=== PATIENT | male | born 1960 | race Caucasian/White ===

== ENCOUNTER 2016-07-16 15:10 | Inpatient (IN) | payer OTHER ==
[~2016-07-16] VITALS: Ht 170.2 cm; Wt 97.7 kg
[~2016-07-16 15:10] MED LIST: DIOVAN; LIPITOR
[2016-07-16 16:19] LABS: EOSINOPHIL (%) 1.9 % (0-5); EOSINOPHIL COUNT 0.1 K/uL (0-0.3); HEMATOCRIT 23.8 % (38.0-50.0); IMMATURE GRANULOCYTE (%) 0.4 % (0.0-0.7); INSTRUMENT ABS NEUTROPHIL CT 5.2 K/uL; LYMPHOCYTE COUNT 1.2 K/uL (1.0-2.8); MCH 28.6 PG (29.0-34.0); MCHC 33.2 G/DL (30.0-36.0); MCV 86.2 FL (86-99); MONOCYTE (%) 11.9 % (3-12); MONOCYTE COUNT 0.9 K/uL (0-0.8); NEUTROPHIL (%) 69.1 % (45-76); NEUTROPHIL COUNT 5.2 K/uL (1.8-6.4); NRBC (%) 0.3 /100 WBC (0-0); PLATELET COUNT 285 K/uL (156-360); RBC DIS.WIDTH-CV 12.5 % (11.8-14.6); RBC DIS.WIDTH-SD 39.3 % (39-53); WHITE BLOOD COUNT 7.5 K/uL (4.1-10.2)
[2016-07-16 16:20] LABS: RED BLOOD COUNT 2.76 M/uL (4.00-5.50)
[2016-07-16 16:30] LABS: CHLORIDE 98 mEq/L (99-109); SODIUM 137 mEq/L (136-147)
[2016-07-16 16:32] LABS: GLUCOSE 118 mg/dL (70-99)
[2016-07-16 16:33] LABS: ANION GAP 13 MEQ/L (2-14)
[2016-07-16 16:35] LABS: GFR ESTIMATE (CALCULATED) > 59 mL/min/
[2016-07-16 16:36] LABS: UREA NITROGEN (BUN) 17 mg/dL (9-23)
[2016-07-16 16:46] LABS: C-REACTIVE PROTEIN 159.1 MG/L (0-10); SAMPLE HEMOLYSIS CHECK 0; SAMPLE ICTERIC CHECK 0; SAMPLE LIPEMIA CHECK 0
[2016-07-16 16:49] LABS: ERTH.SED.RATE 52 MM/HR (0-20)
[2016-07-16 19:00] VITALS: BP 150/72
[2016-07-16] MEDS ORDERED: XARELTO20 MG PO (19:33)
[2016-07-16] MEDS ORDERED: ROXICODONE5 MG PO (19:33)
[2016-07-16] MEDS ORDERED: LOSARTAN-HCTZ1 EAC2 PO (19:33)
[2016-07-16] MEDS ORDERED: LIPITOR20 MG PO (19:34)
[2016-07-16] MEDS ORDERED: LO-DOSE ASPIRIN81 M1 PO (19:34)
[2016-07-16] MEDS ORDERED: NORVASC5 MG PO (19:34)
[2016-07-16] MEDS ORDERED: TYLENOL EXTRA500 MG PO (19:35)
[2016-07-16 20:00] VITALS: BP 150/71
[2016-07-16 21:00] VITALS: BP 140/70
[2016-07-16 22:00] VITALS: BP 133/69
[2016-07-16 23:00] VITALS: BP 135/72
[2016-07-16 23:40] VITALS: BP 139/68
[2016-07-17] VITALS (11 sets, daily range): BP systolic 118–147; BP diastolic 58–86
[2016-07-17 09:26] LABS: HEMATOCRIT 27.1 % (38.0-50.0); MCH 27.7 PG (29.0-34.0); MCHC 32.5 G/DL (30.0-36.0); MCV 85.2 FL (86-99); PLATELET COUNT 299 K/uL (156-360); RBC DIS.WIDTH-CV 13.4 % (11.8-14.6); RBC DIS.WIDTH-SD 42.4 % (39-53); RED BLOOD COUNT 3.18 M/uL (4.00-5.50); WHITE BLOOD COUNT 6.1 K/uL (4.1-10.2)
[2016-07-17 09:49] LABS: ALKALINE PHOSPHATASE 113 IU/L (3-129); ANION GAP 7 MEQ/L (2-14); CHLORIDE 96 MEQ/L (99-109); GFR ESTIMATE (CALCULATED) > 59 mL/min/; GLUCOSE 161 mg/dL (70-99); HDL CHOLESTEROL 34 MG/DL (Desirable>=40); LDL CHOLESTEROL 67 mg/dL (Desirable<100); NON-HDL CHOLESTEROL 92 mg/dL (Desirable<160); POTASSIUM 3.9 MEQ/L (3.7-5.4); SAMPLE HEMOLYSIS CHECK 0; SAMPLE ICTERIC CHECK 0; SAMPLE LIPEMIA CHECK 0; SODIUM 135 MEQ/L (136-147); TOTAL BILIRUBIN 0.7 MG/DL (0.0-1.0); TOTAL CHOLESTEROL 126 mg/dL (Desirable<200); TRIGLYCERIDES 126 MG/DL (Normal: <150); UREA NITROGEN (BUN) 14 mg/dL (9-23)
[2016-07-17 10:43] LABS: Estimated Average Glucose 117 mg/dL (70-123); HEMOGLOBIN A1c (GLYCOHEMOGLOB) 5.7 % HGB (Below 5.7)
[2016-07-17 16:04] LABS: HEMATOCRIT 27.6 % (38.0-50.0); MCV 85.2 FL (86-99)
[2016-07-18 03:35] VITALS: BP 131/72
[2016-07-18 05:53] LABS: EOSINOPHIL COUNT 0.1 K/uL (0-0.3); HEMATOCRIT 27.9 % (38.0-50.0); IMMATURE GRANULOCYTE (%) 0.3 % (0.0-0.7); LYMPHOCYTE COUNT 1.2 K/uL (1.0-2.8); MCH 27.4 PG (29.0-34.0); MCHC 32.3 G/DL (30.0-36.0); MCV 85.1 FL (86-99); MEAN PLAT.VOLUME 8.8 uM^3 (9.0-12.4); MONOCYTE (%) 11.4 % (3-12); MONOCYTE COUNT 0.8 K/uL (0-0.8); NEUTROPHIL (%) 69.3 % (45-76); PLATELET COUNT 346 K/uL (156-360); RBC DIS.WIDTH-CV 13.4 % (11.8-14.6); RBC DIS.WIDTH-SD 41.4 % (39-53); RED BLOOD COUNT 3.28 M/uL (4.00-5.50); WHITE BLOOD COUNT 7.1 K/uL (4.1-10.2)
[2016-07-18 06:57] LABS: ANION GAP 8 MEQ/L (2-14); CHLORIDE 97 MEQ/L (99-109); GFR ESTIMATE (CALCULATED) > 59 mL/min/; POTASSIUM 4.4 MEQ/L (3.7-5.4); SAMPLE HEMOLYSIS CHECK 0; SAMPLE ICTERIC CHECK 0; SAMPLE LIPEMIA CHECK 0; SODIUM 136 MEQ/L (136-147); UREA NITROGEN (BUN) 14 mg/dL (9-23)
[2016-07-18 06:59] LABS: GLUCOSE 106 mg/dL (70-99)
[2016-07-18 07:55] VITALS: BP 139/79
[2016-07-18 09:11] LABS: FERRITIN 166 NG/ML (22-322); IRON 26 MCG/DL (35-150)
[2016-07-18 12:37] VITALS: BP 129/67
[2016-07-18 15:58] VITALS: BP 126/69
[2016-07-18 20:26] VITALS: BP 135/70
[2016-07-18 23:49] VITALS: BP 140/73
[2016-07-19 03:56] VITALS: BP 140/68
[2016-07-19 05:39] LABS: EOSINOPHIL (%) 1.3 % (0-5); EOSINOPHIL COUNT 0.1 K/uL (0-0.3); HEMATOCRIT 27.7 % (38.0-50.0); IMMATURE GRANULOCYTE (%) 0.5 % (0.0-0.7); INSTRUMENT ABS NEUTROPHIL CT 5.2 K/uL; LYMPHOCYTE COUNT 1.3 K/uL (1.0-2.8); MCH 27.8 PG (29.0-34.0); MCHC 32.9 G/DL (30.0-36.0); MCV 84.7 FL (86-99); MEAN PLAT.VOLUME 8.8 uM^3 (9.0-12.4); MONOCYTE (%) 11.5 % (3-12); MONOCYTE COUNT 0.9 K/uL (0-0.8); NEUTROPHIL (%) 68.9 % (45-76); NEUTROPHIL COUNT 5.2 K/uL (1.8-6.4); PLATELET COUNT 367 K/uL (156-360); RBC DIS.WIDTH-CV 13.2 % (11.8-14.6); RBC DIS.WIDTH-SD 40.6 % (39-53); RED BLOOD COUNT 3.27 M/uL (4.00-5.50); WHITE BLOOD COUNT 7.6 K/uL (4.1-10.2)
[2016-07-19 07:45] VITALS: BP 134/70
[2016-07-19] MEDS ORDERED: TIZANIDINE HCL4 MG PO (11:30)
[2016-07-19] MEDS ORDERED: CEFTIN500 MG PO (11:32)
[2016-07-19] MEDS ORDERED: PANTOPRAZOLE SO40 MG PO (11:32)
[2016-07-19 12:22] VITALS: BP 140/77
== END 2016-07-19 12:24 | disposition home or self-care (01) | DRG 378 ==
LOC: EME 15:10 → EDOF 21:00 → 3EAST 21:00
PROVIDERS: Emergency Medicine; Family Medicine
PROC: 30233N1 Transfusion of Nonautologous Red Blood Cells into Peripheral Vein, Percutaneous Approach (ICD-10-PCS; principal; 2016-07-17)
DX: K92.2 Gastrointestinal hemorrhage, unspecified (principal); D62 Acute posthemorrhagic anemia; L03.115 Cellulitis of right lower limb; E78.5 Hyperlipidemia, unspecified; I10 Essential (primary) hypertension; Z79.82 Long term (current) use of aspirin; K21.9 Gastro-esophageal reflux disease without esophagitis; L25.9 Unspecified contact dermatitis, unspecified cause; R73.9 Hyperglycemia, unspecified; R79.89 Other specified abnormal findings of blood chemistry; Z86.711 Personal history of pulmonary embolism; Z95.828 Presence of other vascular implants and grafts; Z86.718 Personal history of other venous thrombosis and embolism
CPT/HCPCS: 73564; 74022; 80048; 80053; 80061; 82728; 83036; 83540; 83605; 85014; 85018; 85025; 85027; 85651; 86140; 86850; 86900; 86901; 86920; 87040; 87070; 87075; 87205; 93971; 99281; 99285; C9113; J0696; J1170; J1940; J2270; J2405; J2543; J3370; J7050; P9016